=== PATIENT | female | born 1985 | race Caucasian/White ===

== ENCOUNTER 2018-04-11 20:23 | Emergency (ER) | payer OTHER ==
[2018-04-11 20:43] VITALS: O2SAT 98
[2018-04-11] MEDS ORDERED: TORAdol 30 mg Injection IM ONE (20:58)
[2018-04-11] MEDS ORDERED: Norflex 60 MG/2 ML IM ONE (20:58)
[2018-04-11] MEDS ORDERED: TORAdol 30 mg Injection ONE (21:02)
[2018-04-11] MEDS ORDERED: Norflex 60 MG/2 ML ONE (21:02)
--- NOTE | 2018-04-11 21:02 | ERPHSYRPT ---
- History of Present Illness Time Seen by Provider: 04/11/18 20:58 Source: patient Exam Limitations: no limitations Patient Subjective Stated Complaint: Lower back pain Triage Nursing Assessment: Patient ambulated back to ED and transferred self to bed. Patient complains of mid lower back pain 2/10 when sitting, if up moving pain is 9/10. Patient states pain started yesterday morning when she first got out of bed. Patient states taking a hot shower relieves pain slightly. Patient has no redness, swelling noted to mid lower back. Patient A+O X 3. Patient lungs clear a/p karishma. No edema present. Physician History: This is a 32-year-old white female with history of migraines, fibromyalgia she arrives with complaint of pain in her lower back which begins midline and radiates across bilaterally in the low lumbosacral area symptoms upon awakening yesterday. She has not been otherwise ill she is not having problems moving her extremities she has not had any urinary symptoms. Past medical history includes migraines, fibromyalgia. Past surgical history includes tonsillectomy and tubal ligation. Social history denies tobacco alcohol or illicit drugs Timing/Duration: yesterday Severity: moderate Modifying Factors: Improves With: movement Associated Symptoms: No nausea, No vomiting, No abdominal pain, No shortness of breath, No heartburn, No diaphoresis, No cough, No chills, No chest pain, No fever, No headaches, No loss of appetite, No malaise, No rash, No syncope, No seizure, No weakness Allergies/Adverse Reactions: nitrofurantoin [From Macrobid] Allergy (Mild, Verified 04/11/18 20:43) Itching nitrofurantoin macrocrystalline [From Macrobid] Allergy (Mild, Verified 20:43) Itching sumatriptan [From Imitrex] Allergy (Mild, Verified 04/11/18 20:43) Itching sumatriptan succinate [From Imitrex] Allergy (Mild, Verified 04/11/18 20:43) Itching Home Medications: Duloxetine HCl 30 mg [Cymbalta 30 MG Capsule] 60 mg PO HS 04/11/18 [ History] Metformin HCl 500 mg [Glucophage 500 MG] 1,000 mg PO HS 04/11/18 [History] Rizatriptan Benzoate [Maxalt] 10 mg PO BID PRN PRN 04/11/18 [History] Hx Tetanus, Diphtheria Vaccination/Date Given: Yes Hx Influenza Vaccination/Date Given: Yes Hx Pneumococcal Vaccination/Date Given: No Immunizations Up to Date: Yes - Review of Systems Constitutional: No Fever, No Chills Eyes: No Symptoms Ears, Nose, & Throat: No Symptoms Respiratory: No Cough, No Dyspnea Cardiac: No Chest Pain, No Edema, No Syncope Abdominal/Gastrointestinal: No Abdominal Pain, No Nausea, No Vomiting, No Diarrhea Genitourinary Symptoms: No Dysuria Musculoskeletal: Back Pain (low back pain), No Neck Pain, No Deformity, No Fall , No Injury, No Joint Redness, No Joint Pain, No Joint Swelling, No Myalgias Skin: No Symptoms Neurological: No Dizziness, No Focal Weakness, No Sensory Changes Psychological: No Symptoms Endocrine: No Symptoms All Other Systems: Reviewed and Negative - Past Medical History Pertinent Past Medical History: No Neurological History: Migraines ENT History: No Pertinent History Cardiac History: No Pertinent History Respiratory History: No Pertinent History Endocrine Medical History: No Pertinent History Musculoskeletal History: No Pertinent History GI Medical History: No Pertinent History History: No Pertinent History Psycho-Social History: No Pertinent History Female Reproductive Disorders: No Pertinent History Other Medical History: fibromyalgia - Past Surgical History Past Surgical History: Yes Female Surgical History: Section Other Surgical History: tonsilectomy - Social History Smoking Status: Former smoker Exposure to second hand smoke: No Drug Use: none Patient Lives Alone: No - Female History Hx Last Menstrual Period: 1 month ago Hx Now: No - Nursing Vital Signs Nursing Vital Signs: Initial Vital Signs Temperature 98.5 F 04/11/18 20:32 Pulse Rate 103 H 04/11/18 20:32 Respiratory Rate 16 04/11/18 20:32 Blood Pressure 140/102 04/11/18 20:32 O2 Sat by Pulse Oximetry 98 04/11/18 20:32 Pain Scale Pain Intensity 6 - Physical Exam General Appearance: mild distress Eye Exam: PERRL/EOMI, eyes nml inspection Ears, Nose, Throat Exam: normal ENT inspection, TMs normal, pharynx normal, moist mucous membranes Neck Exam: normal inspection, non-tender, supple, full range of motion Respiratory Exam: normal breath sounds, lungs clear, No respiratory distress Cardiovascular Exam: regular rate/rhythm, normal heart sounds, normal peripheral pulses Gastrointestinal/Abdomen Exam: soft (she really ago a him), normal bowel sounds , No tenderness, No mass Back Exam: other (cloth bleaching range back tender midline and bilateral low lumbosacral region with movement and palpation) Extremity Exam: normal inspection, normal range of motion, pelvis stable Neurologic Exam: alert, oriented x 3, cooperative, 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, normal mood/affect, nml cerebellar function, nml station & gait, sensation nml, No motor deficits Skin Exam: normal color, warm, dry, No rash Lymphatic Exam: No adenopathy SpO2 Interpretation: normal (98%) SpO2: 98 Oxygen Delivery: Room Air Ordered Tests: Active Orders 24 hr Category Date Time Status UA W/RFX UR CULTURE Stat Lab 04/11/18 21:30 Completed Medication Summary Discontinued Medications Generic Name Dose Route Start Last Admin Trade Name Freq PRN Reason Stop Dose Admin Ketorolac Tromethamine 60 mg 04/11/18 20:58 04/11/18 21:04 Toradol 30 Mg Injection IM 04/11/18 20:59 60 mg STAT ONE Administration Ketorolac Tromethamine Confirm 04/11/18 21:02 Toradol 30 Mg Injection Administered 04/11/18 21:03 Dose 60 mg .ROUTE .STK-MED ONE Orphenadrine Citrate 60 mg 04/11/18 20:58 04/11/18 21:05 Norflex 60 Mg/2 Ml IM 04/11/18 20:59 60 mg STAT ONE Administration Orphenadrine Citrate Confirm 04/11/18 21:02 Norflex 60 Mg/2 Ml Administered 04/11/18 21:03 Dose 60 mg .ROUTE .STK-MED ONE Lab/Rad Data: Laboratory Results 04/11/18 Range/Units 21:30 Urine Color YELLOW (YELLOW) Urine Appearance SLIGHTLY CLOUDY (CLEAR) Urine pH 5.0 (5-6) Ur Specific [place] 1.024 (1.005-1.025) Urine Protein 30 (Negative) Urine Ketones TRACE (NEGATIVE) Urine Blood SMALL (0-5) Ezekiel/ul Urine Nitrite NEGATIVE (NEGATIVE) Urine Bilirubin NEGATIVE (NEGATIVE) Urine Urobilinogen NEGATIVE (0-1) mg/dL Ur Leukocyte Esterase NEGATIVE (NEGATIVE) Urine WBC (Auto) NONE (0-5) /HPF Urine RBC (Auto) 0-2 (0-2) /HPF U Epithel Cells (Auto) NONE (FEW) /HPF Urine Bacteria (Auto) NONE (NEGATIVE) /HPF Calcium Oxalate Crystal 2-5 (NEGATIVE) /HPF Urine Mucus (Auto) SLIGHT (NEGATIVE) /HPF Urine Culture Reflexed NO (NO) Urine Glucose NEGATIVE (NEGATIVE) mg/dL - Progress Progress: improved Progress Note: 04/11/18 22:00 32-year-old white female arrives with complaint of pain in her low back and sacral region symptoms since yesterday morning she states she awoke with the pain/ She denies any injuries she has point tenderness in the low lumbosacral region. She is also tender in this area with movement she has full range of motion to all extremities she is able to sit upright and fully extend both knees with both hips flexed to 90 without problems she has no neurologic changes she has no urinary symptoms. Patient is better after receiving Toradol 60 mg and Norflex 60 mg IM. Urinalysis is clean. Will plan to discharge patient. Will write for Flexeril 10 mg orally 3 times a day for 5 days will write for [place] 5/325 #12 one orally every 4-6 hours as needed for pain. Patient is also to take Advil [id number] 3 tablets orally every 6 hours as needed for up to 5 days. She is to follow-up with her family doctor(list) if symptoms are worse, no better in 48 hours, or persist longer than one week. She is to return for acute distress or for severe symptoms. Patient was offered a work slip she states she does not work she is a student - Departure Time of Disposition: 22:03 Departure Disposition: Home Clinical Impression: Back pain Qualifiers: Back pain location: low back pain Chronicity: acute Back pain laterality: midline Sciatica presence: without sciatica Qualified Code(s): M54.5 - Low back pain Lumbar strain Qualifiers: Encounter type: initial encounter Qualified Code(s): S39.012A - Strain of muscle, fascia and tendon of lower back, initial encounter Condition: Fair Critical Care Time: No Instructions: Low Back Pain (DC) Additional Instructions: Return home. [place] and Flexeril as prescribed. Advil [id number] 3 tablets every 6 hours as needed for pain up to 5 days ( take with food) Follow-up with your family doctor (list) if symptoms are worse, no better in 48 hours, or persist longer than one week. Return for acute distress or for severe symptoms. Prescriptions: Cyclobenzaprine HCl [Flexeril] 10 mg PO TID #15 tablet Hydrocodone/Acetaminophen [[place] 5-325 Tablet] 1 tab PO Q4-6HPRN PRN #12 tablet MDD 6 tablets PRN Reason: Pain
[2018-04-11 21:53] LABS: Appearance SLIGHTLY CLOUDY (CLEAR); Bilirubin NEGATIVE (NEGATIVE); Blood SMALL Ery/ul (0-5); Glucose NEGATIVE (NEGATIVE); Ketones TRACE (NEGATIVE); Leukocyte Esterase NEGATIVE (NEGATIVE); Nitrite NEGATIVE (NEGATIVE); Protein,Urine Dip 30 (Negative); Specific Gravity 1.024 (1.005-1.025); Urobilinogen NEGATIVE mg/dL (0-1)
[2018-04-11 22:12] VITALS: BP 134/93; PULSE 99
== END 2018-04-11 22:15 | disposition home or self-care (01) ==
LOC: ED 20:23
DX: M54.5 Low back pain (principal); S39.012A Strain of muscle, fascia and tendon of lower back, initial encounter; Z79.899 Other long term (current) drug therapy
CPT/HCPCS: 81001; 96372; 99284; J1885; J2360

== ENCOUNTER 2018-06-28 13:25 | Emergency (ER) | payer OTHER ==
[2018-06-28] MEDS ORDERED: Sodium Chloride 0.9% 1000 ML 1,000 ML IV STA (13:46)
[2018-06-28] MEDS ORDERED: Hydromorphone 1 mg/ml Ampule IV ONE (13:46)
[2018-06-28] MEDS ORDERED: Zofran 4 MG/2 ML VIAL IV ONE (13:46)
--- NOTE | 2018-06-28 13:53 | ERPHSYRPT ---
- History of Present Illness Time Seen by Provider: 06/28/18 13:45 Historian: patient Exam Limitations: clinical condition Patient Subjective Stated Complaint: sudden onset pain in pelvic region Triage Nursing Assessment: Pt c/o of sudden onset pelvic region and lower abdominal pain in both quadrants, hx of PCOS, rates pain 10/10, pain with palpatation, non radiating, last bm today with no difficulties, last oral intake at 1230, nausea, no vomiting Physician History: PATIENT WITH A HISTORY OF HYPERTENSION AND POLYCYSTIC OVARIAN DISEASE COMPLAINS OF ACUTE ONSET OF SEVERE LOWER ABDOMINAL PAIN OVER THE PAST 2 HOURS. DENIES ASSOCIATED NAUSEA, EMESIS, DIARRHEA, VAGINAL BLEEDING OR DISCHARGE AND URINARY SYMPTOMS. Timing/Duration: today Activities at Onset: none Quality: sharpness, stabbing Abdominal Pain Onset Location: RLQ, LLQ, suprapubic Pain Radiation: no radiation Severity of Pain-Max: severe Severity of Pain-Current: severe Modifying Factors: Improves With: nothing Associated Symptoms: denies symptoms Previous symptoms: no prior history Allergies/Adverse Reactions: nitrofurantoin [From Macrobid] Allergy (Mild, Verified 04/11/18 20:43) Itching nitrofurantoin macrocrystalline [From Macrobid] Allergy (Mild, Verified 20:43) Itching sumatriptan [From Imitrex] Allergy (Mild, Verified 04/11/18 20:43) Itching sumatriptan succinate [From Imitrex] Allergy (Mild, Verified 04/11/18 20:43) Itching Home Medications: Duloxetine HCl 30 mg [Cymbalta 30 MG Capsule] 60 mg PO HS 04/11/18 [ History] Metformin HCl 500 mg [Glucophage 500 MG] 1,500 mg PO HS 04/11/18 [History] Rizatriptan Benzoate [Maxalt] 10 mg PO BID PRN PRN 04/11/18 [History] Lisinopril/Hydrochlorothiazide [Lisinopril-Hctz 20-12.5 mg Tab] 1 tab PO DAILY 06/28/18 [History] Omeprazole 40 mg PO DAILY 06/28/18 [History] Hx Tetanus, Diphtheria Vaccination/Date Given: Yes Hx Influenza Vaccination/Date Given: Yes Hx Pneumococcal Vaccination/Date Given: No - Review of Systems Constitutional: No Fever, No Chills Eyes: No Symptoms Ears, Nose, & Throat: No Symptoms Respiratory: No Symptoms, No Cough, No Dyspnea Cardiac: No Chest Pain, No Edema, No Syncope Abdominal/Gastrointestinal: Abdominal Pain, No Nausea, No Vomiting, No Diarrhea Genitourinary Symptoms: No Symptoms, No Dysuria Musculoskeletal: No Symptoms, No Back Pain, No Neck Pain Skin: No Rash Neurological: No Dizziness, No Focal Weakness, No Sensory Changes Psychological: No Symptoms Endocrine: No Symptoms All Other Systems: Reviewed and Negative - Past Medical History Pertinent Past Medical History: No Neurological History: Migraines ENT History: No Pertinent History Cardiac History: No Pertinent History Respiratory History: No Pertinent History Endocrine Medical History: No Pertinent History Musculoskeletal History: No Pertinent History GI Medical History: No Pertinent History History: No Pertinent History Psycho-Social History: No Pertinent History Female Reproductive Disorders: No Pertinent History Other Medical History: fibromyalgia, PCOS - Past Surgical History Past Surgical History: Yes Female Surgical History: Section Other Surgical History: tonsilectomy - Social History Smoking Status: Former smoker Exposure to second hand smoke: No Drug Use: none Patient Lives Alone: No - Female History Hx Last Menstrual Period: 05/21/2018 Hx Now: No (tubal) - Nursing Vital Signs Nursing Vital Signs: Initial Vital Signs Temperature 98.0 F 06/28/18 13:33 Pulse Rate 94 H 06/28/18 13:33 Blood Pressure 114/77 06/28/18 13:33 O2 Sat by Pulse Oximetry 98 06/28/18 13:33 Pain Scale Pain Intensity 0 - Physical Exam General Appearance: moderate distress Eye Exam: PERRL/EOMI Ears, Nose, Throat Exam: normal ENT inspection Neck Exam: normal inspection Respiratory Exam: normal breath sounds Cardiovascular Exam: regular rate/rhythm Gastrointestinal/Abdomen Exam: soft, normal bowel sounds, tenderness (SUPRAPUBIC , RIGHT LOWER QUAD AND LEFT LOWER QUAD TENDERNESS) Back Exam: normal inspection (NO CVA TENDERNESS) Extremity Exam: normal inspection Neurologic Exam: alert, oriented x 3, cooperative SpO2 Interpretation: normal SpO2: 98 - CT Exams Abdomen/Pelvis CT Interpretation: Discussed w/radiologist (3 CM RIGHT OVARIAN CYST, FATTY LIVER , NORMAL APPENDIX) Ordered Tests: Active Orders 24 hr Category Date Time Status IV Insertion STAT Care 06/28/18 13:46 Active ABDOMEN AND PELVIS W CONTRAST [CT] Stat Exams 06/28/18 13:47 Completed AMYLASE Stat Lab 06/28/18 14:10 Completed CBC W DIFF Stat Lab 06/28/18 14:10 Completed CMP Stat Lab 06/28/18 14:10 Completed HCG,QUALITATIVE URINE Stat Lab 06/28/18 13:57 Completed LIPASE Stat Lab 06/28/18 14:10 Completed UA W/RFX UR CULTURE Stat Lab 06/28/18 14:00 Completed Medication Summary Discontinued Medications Generic Name Dose Route Start Last Admin Trade Name Myles PRN Reason Stop Dose Admin Hydromorphone HCl 1 mg 06/28/18 13:46 06/28/18 14:21 Hydromorphone 1 Mg/Ml Ampule IV 06/28/18 13:47 Not Given STAT ONE Sodium Chloride 1,000 mls @ 999 mls/hr 06/28/18 13:46 06/28/18 16:20 Sodium Chloride 0.9% 1000 Ml IV 06/28/18 14:46 Infused .Q1H1M STA Infusion Sodium Chloride Confirm 06/28/18 14:18 Sodium Chloride 0.9% 1000 Ml Administered 06/28/18 14:19 Dose 1,000 mls @ ud .ROUTE .STK-MED ONE Ketorolac Tromethamine 30 mg 06/28/18 15:54 06/28/18 16:27 Toradol 30 Mg Injection IV 06/28/18 15:55 Not Given STAT ONE Ondansetron HCl 4 mg 06/28/18 13:46 06/28/18 14:22 Zofran 4 Mg/2 Ml Vial IV 06/28/18 13:47 Not Given STAT ONE Lab/Rad Data: Laboratory Result Diagrams 06/28/18 14:10 06/28/18 14:10 Laboratory Results 06/28/18 06/28/18 06/28/18 Range/Units 14:10 14:10 14:00 WBC 8.5 (4.0-10.5) K/mm3 RBC 4.26 (4.1-5.4) M/mm3 Hgb 12.3 (12.0-16.0) gm/dl Hct 37.8 (35-47) % MCV 88.7 (78-100) fl MCH 28.9 (26-32) pg MCHC 32.5 (32-36) g/dl RDW 13.5 (11.5-14.0) % Plt Count 347 (150-450) K/mm3 MPV 10.3 H (6-9.5) fl Gran % 58.1 (36.0-66.0) % Eos # (Auto) 0.09 (0-0.5) Absolute Lymphs (auto) 2.68 (1.0-4.6) Absolute Monos (auto) 0.68 (0.0-1.3) Lymphocytes % 31.6 (24.0-44.0) % Monocytes % 8.0 (0.0-12.0) % Eosinophils % 1.1 (0.00-5.0) % Basophils % 1.2 (0.0-0.4) % Absolute Granulocytes 4.92 (1.4-6.9) Basophils # 0.10 (0-0.4) Sodium 139 (137-145) mmol/L Potassium 4.0 (3.5-5.1) mmol/L Chloride 101 (98-107) mmol/L Carbon Dioxide 27 (22-30) mmol/L Anion Gap 15.7 H (5-15) MEQ/L BUN 18 H (7-17) mg/dL Creatinine 0.95 (0.52-1.04) mg/dL Estimated GFR > 60.0 ML/MIN Glucose 125 H (74-106) mg/dL Calcium 9.8 (8.4-10.2) mg/dL Total Bilirubin 0.40 (0.2-1.3) mg/dL AST 19 (14-36) U/L ALT 27 (0-35) U/L Alkaline Phosphatase 77 (38-126) U/L Serum Total Protein 8.2 (6.3-8.2) g/dL Albumin 4.8 (3.5-5.0) g/dL Amylase 68 (30-110) U/L Lipase 95 (23-300) U/L Urine Color YELLOW (YELLOW) Urine Appearance SLIGHTLY CLOUDY (CLEAR) Urine pH 5.0 (5-6) Ur Specific [place] 1.028 (1.005-1.025) Urine Protein NEGATIVE (Negative) Urine Ketones NEGATIVE (NEGATIVE) Urine Blood NEGATIVE (0-5) Ezekiel/ul Urine Nitrite NEGATIVE (NEGATIVE) Urine Bilirubin NEGATIVE (NEGATIVE) Urine Urobilinogen NEGATIVE (0-1) mg/dL Ur Leukocyte Esterase NEGATIVE (NEGATIVE) Urine WBC (Auto) 0-2 (0-5) /HPF Urine RBC (Auto) NONE (0-2) /HPF U Epithel Cells (Auto) RARE (FEW) /HPF Urine Bacteria (Auto) RARE (NEGATIVE) /HPF Urine Mucus (Auto) SLIGHT (NEGATIVE) /HPF Urine Culture Reflexed NO (NO) Urine Glucose NEGATIVE (NEGATIVE) mg/dL Urine HCG, Qual (Negative) 06/28/18 Range/Units 13:57 WBC (4.0-10.5) K/mm3 RBC (4.1-5.4) M/mm3 Hgb (12.0-16.0) gm/dl Hct (35-47) % MCV (78-100) fl MCH (26-32) pg MCHC (32-36) g/dl RDW (11.5-14.0) % Plt Count (150-450) K/mm3 MPV (6-9.5) fl Gran % (36.0-66.0) % Eos # (Auto) (0-0.5) Absolute Lymphs (auto) (1.0-4.6) Absolute Monos (auto) (0.0-1.3) Lymphocytes % (24.0-44.0) % Monocytes % (0.0-12.0) % Eosinophils % (0.00-5.0) % Basophils % (0.0-0.4) % Absolute Granulocytes (1.4-6.9) Basophils # (0-0.4) Sodium (137-145) mmol/L Potassium (3.5-5.1) mmol/L Chloride (98-107) mmol/L Carbon Dioxide (22-30) mmol/L Anion Gap (5-15) MEQ/L BUN (7-17) mg/dL Creatinine (0.52-1.04) mg/dL Estimated GFR ML/MIN Glucose (74-106) mg/dL Calcium (8.4-10.2) mg/dL Total Bilirubin (0.2-1.3) mg/dL AST (14-36) U/L ALT (0-35) U/L Alkaline Phosphatase (38-126) U/L Serum Total Protein (6.3-8.2) g/dL Albumin (3.5-5.0) g/dL Amylase (30-110) U/L Lipase (23-300) U/L Urine Color (YELLOW) Urine Appearance (CLEAR) Urine pH (5-6) Ur Specific [place] (1.005-1.025) Urine Protein (Negative) Urine Ketones (NEGATIVE) Urine Blood (0-5) Ezekiel/ul Urine Nitrite (NEGATIVE) Urine Bilirubin (NEGATIVE) Urine Urobilinogen (0-1) mg/dL Ur Leukocyte Esterase (NEGATIVE) Urine WBC (Auto) (0-5) /HPF Urine RBC (Auto) (0-2) /HPF U Epithel Cells (Auto) (FEW) /HPF Urine Bacteria (Auto) (NEGATIVE) /HPF Urine Mucus (Auto) (NEGATIVE) /HPF Urine Culture Reflexed (NO) Urine Glucose (NEGATIVE) mg/dL Urine HCG, Qual NEGATIVE (Negative) - Progress Progress Note: 06/28/18 14:00 IV NORMAL SALINE 500ML/HR X 2, PATIENT REFUSED PAIN MEDICATIONS 06/28/18 16:35 Counseled pt/family regarding: diagnosis, need for follow-up, rad results - Departure Time of Disposition: 16:40 Departure Disposition: Home Clinical Impression: ABDOMINAL PAIN, RIGHT OVARIAN CYST Condition: Stable Critical Care Time: No Referrals: DONELL SAUNDERS NP [Primary Care Provider] - Additional Instructions: MOTRIN EVERY 6 HOURS NEEDED FOR PAIN. CONSULT YOUR PRIMARY CARE PROVIDER FOR EVALUATION, FOLLOWUP OF OVARIAN CYST.
[2018-06-28 14:14] LABS: BASOPHIL % 1.2 % (0.0-0.4); Eosinophil % 1.1 % (0.00-5.0); Eosinophil (Absolute #) 0.09 (0-0.5); Granulocyte Absolute (ANC) 4.92 (1.4-6.9); Granulocytes % 58.1 % (36.0-66.0); Hematocrit 37.8 % (35-47); Hemoglobin 12.3 gm/dl (12.0-16.0); Lymphocyte (Absolute #) 2.68 (1.0-4.6); Lymphocytes % 31.6 % (24.0-44.0); Mean Cell Volume 88.7 fl (78-100); Mean Corpuscular Hemoglobin 28.9 pg (26-32); Mean Corpuscular Hgb Concent. 32.5 g/dl (32-36); Mean Platelet Volume 10.3 fl (6-9.5); Monocyte (Absolute #) 0.68 (0.0-1.3); Platelet Count 347 K/mm3 (150-450); Red Blood Count 4.26 M/mm3 (4.1-5.4); Red Cell Distribution Width 13.5 % (11.5-14.0); White Blood Count 8.5 K/mm3 (4.0-10.5)
[2018-06-28 14:15] LABS: Appearance SLIGHTLY CLOUDY (CLEAR); Bacteria RARE /HPF (NEGATIVE); Bilirubin NEGATIVE (NEGATIVE); Blood NEGATIVE Ery/ul (0-5); Epithelial Cells RARE /HPF (FEW); Glucose NEGATIVE (NEGATIVE); Ketones NEGATIVE (NEGATIVE); Leukocyte Esterase NEGATIVE (NEGATIVE); Mucus SLIGHT /HPF (NEGATIVE); Nitrite NEGATIVE (NEGATIVE); Protein,Urine Dip NEGATIVE (Negative); Specific Gravity 1.028 (1.005-1.025); Urobilinogen NEGATIVE mg/dL (0-1); WBC 0-2 /HPF (0-5)
[2018-06-28] MEDS ORDERED: Sodium Chloride 0.9% 1000 ML 1,000 ML ONE (14:18)
[2018-06-28 14:28] LABS: ALBUMIN 4.8 g/dL (3.5-5.0); ALKALINE PHOSPHATASE 77 U/L (38-126); AMYLASE 68 U/L (30-110); ANION GAP 15.7 MEQ/L (5-15); BLOOD UREA NITROGEN 18 mg/dL (7-17); CHLORIDE 101 mmol/L (98-107); Calcium 9.8 mg/dL (8.4-10.2); Carbon Dioxide 27 mmol/L (22-30); Creatinine 1 0.95 mg/dL (0.52-1.04); Glucose 125 mg/dL (74-106); LIPASE 95 U/L (23-300); SGOT/AST 19 U/L (14-36); SGPT/ALT 27 U/L (0-35); SODIUM 139 mmol/L (137-145); Total Protein 8.2 g/dL (6.3-8.2)
--- NOTE | 2018-06-28 15:19 | XRAY ---
Indication: Pelvic pain. Multiple contiguous axial images obtained through the abdomen and pelvis using 80 cc Isovue 370 contrast only. Comparison: None Lung bases demonstrates medial right base calcified granuloma and partially visualized right infrahilar chunky calcified node. No infiltrate or effusion. Heart is not enlarged. Stomach is distended with food/fluid. Noncontrasted stomach and bowel loops appear nonobstructed. Normal appendix. 3 cm right ovary cyst. No free fluid/air. Diffuse fatty liver with focal sparing near the gallbladder. Solitary calcified splenic granuloma. Remaining liver, gallbladder, pancreas, spleen, adrenal glands, kidneys, ureters, bladder, uterus, and aorta appear unremarkable. No pathologic retroperitoneal lymphadenopathy. Osseous structures intact. No ventral or inguinal hernias. Impression: 1. 3 cm right ovary cyst, fatty liver, and evidence for old granulomatous disease. 2. Remaining CT abdomen/pelvis with contrast exam is negative. CT DI 28.13
[2018-06-28] MEDS ORDERED: TORAdol 30 mg Injection IV ONE (15:54)
[2018-06-28 16:41] VITALS: BP 106/78; PULSE 80; O2SAT 99
== END 2018-06-28 16:42 | disposition home or self-care (01) ==
LOC: ED 13:25
DX: R10.9 Unspecified abdominal pain (principal); N83.201 Unspecified ovarian cyst, right side; K76.0 Fatty (change of) liver, not elsewhere classified; I10 Essential (primary) hypertension; Z79.899 Other long term (current) drug therapy
CPT/HCPCS: 36000; 36415; 74177; 80053; 81001; 82150; 83690; 84703; 85025; 96360; 96361; 99284

== ENCOUNTER 2018-09-13 19:41 | Emergency (ER) | payer OTHER ==
[2018-09-13 20:06] VITALS: BP 120/76; PULSE 99; O2SAT 99
[2018-09-13] MEDS ORDERED: Adacel Vial IM ONE ×2 (20:31→20:40)
--- NOTE | 2018-09-13 23:02 | ERPHSYRPT ---
- History of Present Illness Time Seen by Provider: 09/13/18 20:20 Source: patient Exam Limitations: clinical condition Patient Subjective Stated Complaint: pt is employee of hospital. pt states that she was drawing a pt's blood in ER when the needle did not cover and flipped around and stuck her in the left thigh. pt states a small amount of blood was noticed. Triage Nursing Assessment: see above Physician History: PATIENT IS AN EMPLOYEE OF HOSPITAL, DRAWING PATIENT'S BLOOD AND NEEDLE ATTACHED TO BUTTERFLY FELL AND STABBED PATIENT IN ER LEFT OUTER THIGH. SUSTAINED PINPRICK WITH TRANSIENT BLEEDING, OCCURRED 1 HOUR PRIOR TO ARRIVAL. Timing/Duration: other (DENIES PAIN) Associated Symptoms: denies symptoms Allergies/Adverse Reactions: nitrofurantoin [From Macrobid] Allergy (Mild, Verified 04/11/18 20:43) Itching nitrofurantoin macrocrystalline [From Macrobid] Allergy (Mild, Verified 20:43) Itching sumatriptan [From Imitrex] Allergy (Mild, Verified 04/11/18 20:43) Itching sumatriptan succinate [From Imitrex] Allergy (Mild, Verified 04/11/18 20:43) Itching Home Medications: Duloxetine HCl 30 mg [Cymbalta 30 MG Capsule] 60 mg PO HS 04/11/18 [ History] Metformin HCl 500 mg [Glucophage 500 MG] 1,500 mg PO HS 04/11/18 [History] Rizatriptan Benzoate [Maxalt] 10 mg PO BID PRN PRN 04/11/18 [History] Lisinopril/Hydrochlorothiazide [Lisinopril-Hctz 20-12.5 mg Tab] 1 tab PO DAILY 06/28/18 [History] Omeprazole 40 mg PO DAILY 06/28/18 [History] Hx Tetanus, Diphtheria Vaccination/Date Given: No Hx Influenza Vaccination/Date Given: Yes Hx Pneumococcal Vaccination/Date Given: No Immunizations Up to Date: Yes - Review of Systems Constitutional: No Fever, No Chills Eyes: No Symptoms Ears, Nose, & Throat: No Symptoms Respiratory: No Cough, No Dyspnea Cardiac: No Chest Pain, No Edema, No Syncope Abdominal/Gastrointestinal: No Abdominal Pain, No Nausea, No Vomiting, No Diarrhea Genitourinary Symptoms: No Dysuria Musculoskeletal: Other (NEEDLE STICK TO LEFT THIGH), No Back Pain, No Neck Pain Skin: No Rash Neurological: No Dizziness, No Focal Weakness, No Sensory Changes Psychological: No Symptoms Endocrine: No Symptoms All Other Systems: Reviewed and Negative - Past Medical History Pertinent Past Medical History: No Neurological History: Migraines ENT History: No Pertinent History Cardiac History: No Pertinent History Respiratory History: No Pertinent History Endocrine Medical History: No Pertinent History Musculoskeletal History: No Pertinent History GI Medical History: No Pertinent History History: No Pertinent History Psycho-Social History: No Pertinent History Female Reproductive Disorders: No Pertinent History Other Medical History: fibromyalgia, PCOS - Past Surgical History Past Surgical History: Yes Female Surgical History: Section Other Surgical History: tonsilectomy - Social History Smoking Status: Never smoker Exposure to second hand smoke: No Drug Use: none Patient Lives Alone: No - Female History Hx Now: No - Nursing Vital Signs Nursing Vital Signs: Initial Vital Signs Temperature 98.9 F 09/13/18 19:55 Pulse Rate 99 H 09/13/18 19:55 Respiratory Rate 18 09/13/18 19:55 Blood Pressure 120/76 09/13/18 19:55 O2 Sat by Pulse Oximetry 99 09/13/18 19:55 - Physical Exam General Appearance: no apparent distress, alert Respiratory Exam: No respiratory distress Gastrointestinal/Abdomen Exam: No tenderness, No mass Back Exam: normal inspection, normal range of motion, No CVA tenderness, No vertebral tenderness Extremity Exam: other (THERE IS A PUNCTURE WOUND 0.3MM OVER DISTAL LEFT THIGH LATERAL ASPECT, SUPERIOR TO LATERAL FEMORAL CONDYLE) Neurologic Exam: No motor deficits Skin Exam: No rash Lymphatic Exam: No adenopathy SpO2: 99 Ordered Tests: Active Orders 24 hr Category Date Time Status Wound Care STAT Care 09/13/18 20:31 Active Medication Summary Discontinued Medications Generic Name Dose Route Start Last Admin Trade Name Freq PRN Reason Stop Dose Admin Diphtheria/Tetanus/Acell Pertussis 0.5 ml 09/13/18 20:31 09/13/18 20:41 Adacel Vial IM 09/13/18 20:32 0.5 ml .ONCE ONE Administration Diphtheria/Tetanus/Acell Pertussis Confirm 09/13/18 20:40 Adacel Vial Administered 09/13/18 20:41 Dose 0.5 ml IM .STK-MED ONE - Progress Progress Note: 09/13/18 23:02, HAD PATIENT SCRUB WOUND WITH HIBICLENS SCRUB ADVISED THE PATIENT TO REVIEW THE PEP MEDS, THE PATIENT SOURCE HIV -NEGATIVE, PATIENT ADMINISTERED ADACEL 0.5ML IM, AND AUGMENTIN 875MG ORALLY 09/13/18 23:08 Counseled pt/family regarding: lab results, diagnosis, need for follow-up - Departure Departure Disposition: Home Clinical Impression: EXPOSURE TO BLOOD BOURNE PATHOGEN, NEEDLE STICK LEFT THIGH Condition: Stable Critical Care Time: No Referrals: [facility] [Primary Care Provider] - Additional Instructions: ANTIBIOTIC AUGMENTIN 875MG TWICE DAILY FOR 7 DAYS. CLEANSE WOUND WITH SOAP AND WATER TWICE DAILY. WATCH FOR SIGNS OF INFECTION REDNESS, SWELLING OR DRAINAGE. Prescriptions: Amox Tr/Potass Clav. 875 mg [Augmentin 875-125 Tablet] 875 mg PO BID #14 tablet
[2018-09-13] MEDS ORDERED: Augmentin 875-125 Tablet PO ONE (23:14)
[2018-09-13] MEDS ORDERED: Augmentin 875-125 Tablet ONE (23:16)
[2018-09-16 03:23] LABS: HIV Antigen/Antibody Combo Non Reactive (Non Reactive); Hepatitis B Sur Ag Screen Non Reactive (Non Reactive); Hepatitis B Surface Ab.Quant >1000.00 mIU/mL (0.00-8.49); Hepatitis C Antibody by EIA Non Reactive (Non Reactive)
== END 2018-09-13 23:18 | disposition home or self-care (01) ==
LOC: ER - EH 19:41
DX: Z77.21 Contact with and (suspected) exposure to potentially hazardous body fluids (principal); W46.1XXA Contact with contaminated hypodermic needle, initial encounter; W46.0XXA Contact with hypodermic needle, initial encounter; Y92.230 Patient room in hospital as the place of occurrence of the external cause
CPT/HCPCS: 36415; 86317; 86701; 86702; 86803; 87340; 87389; 90715; 99283; A9270-GY